=== PATIENT | female | born 1985 | race Two or more races ===

== ENCOUNTER 2023-06-17 22:08 | Emergency (ER) | payer MEDICAID, OTHER ==
[~2023-06-17] VITALS: Ht 172.7 cm; Wt 112.2 kg
[2023-06-17 22:17] VITALS: BP 151/97; PULSE 103; RESP 18; O2SAT 97
== END 2023-06-18 01:09 | disposition left against medical advice (07) ==
LOC: ER 22:08
DX: M25.521 Pain in right elbow (principal); Z53.21 Procedure and treatment not carried out due to patient leaving prior to being seen by health care provider; W22.8XXA Striking against or struck by other objects, initial encounter; Y93.89 Activity, other specified; Y92.89 Other specified places as the place of occurrence of the external cause; Y99.8 Other external cause status